=== PATIENT | male | born 1970 | race Caucasian/White ===

== ENCOUNTER 2020-08-22 14:06 | Emergency (ER) | payer OTHER ==
[~2020-08-22] VITALS: Ht 182.9 cm; Wt 108.9 kg
[2020-08-22] MEDS ORDERED: DILTIAZEM 24HR300 M1 PO (14:31)
[2020-08-22] MEDS ORDERED: OMEPRAZOLE20 MG PO (14:32)
[2020-08-22] MEDS ORDERED: K-TAB ER20 MEQ PO (14:32)
[2020-08-22] MEDS ORDERED: ZESTRIL40 MG PO (14:33)
[2020-08-22] MEDS ORDERED: FUROSEMIDE20 MG PO (14:34)
[2020-08-22] MEDS ORDERED: CATAPRES0.1 MG PO (14:34)
[2020-08-22] MEDS ORDERED: ATORVASTATIN CA80 MG PO (14:35)
[2020-08-22] MEDS ORDERED: CARVEDILOL25 MG PO (14:35)
[2020-08-22] MEDS ORDERED: PAROXETINE HCL20 MG PO (14:36)
[2020-08-22] MEDS ORDERED: ELIQUIS5 MG PO (14:36)
[2020-08-22] MEDS ORDERED: NITROGLYCERIN0.4 MG SL (15:54)
--- NOTE | 2020-08-22 23:54 | EKG ---
[facility] [address] [facility] [place], [place] [address] Signed Normal sinus rhythm Normal ECG Confirmed by WILLIAM HUNTER MD ([id number]) on 08/22/2020 11:54:20 PM Electronically Signed By: WILLIAM HUNTER MD 08/22/20 2354 PATIENT NAME: CAROLYN CARPENTER Electrocardiogram DATE OF : 68 PHYSICIAN: WILLIAM HUNTER MD REPORT #: [id number] REPORT IS CONFIDENTIAL AND NOT TO BE RELEASED WITHOUT AUTHORIZATION
== END 2020-08-22 16:03 | disposition home or self-care (01) ==
LOC: ED 14:06
DX: I20.9 Angina pectoris, unspecified (principal); I10 Essential (primary) hypertension; K21.9 Gastro-esophageal reflux disease without esophagitis; Z86.73 Personal history of transient ischemic attack (TIA), and cerebral infarction without residual deficits; F17.200 Nicotine dependence, unspecified, uncomplicated; Z88.0 Allergy status to penicillin; Z79.899 Other long term (current) drug therapy
CPT/HCPCS: 71045; 80053; 82550; 82553; 83735; 83874; 84484; 85025; 93005; 93010; 99285-25

== ENCOUNTER 2021-05-15 15:11 | Emergency (ER) | payer OTHER ==
[~2021-05-15] VITALS: Ht 182.9 cm; Wt 108.9 kg
[~2021-05-15 15:11] MED LIST: ATORVASTATIN CA80 MG PO; CARVEDILOL25 MG PO; CATAPRES0.1 MG PO; DILTIAZEM 24HR300 M1 PO; ELIQUIS5 MG PO; FUROSEMIDE20 MG PO; K-TAB ER20 MEQ PO; NITROGLYCERIN0.4 MG SL; OMEPRAZOLE20 MG PO; PAROXETINE HCL20 MG PO; ZESTRIL40 MG PO
--- NOTE | 2021-05-15 21:28 | EKG ---
[facility] [address] [facility] [place] [address] Signed Sinus bradycardia Otherwise normal ECG When compared with ECG of 22-AUG-2020 14:10, ST now depressed in Lateral leads Nonspecific T wave abnormality now evident in Inferior leads Nonspecific T wave abnormality now evident in Lateral leads Confirmed by VELVET ERAZO DO ([id number]) on 05/15/2021 9:28:34 PM Electronically Signed By: VELVET ERAZO DO 05/15/[id number] PATIENT NAME: CAROLYN CARPENTER Electrocardiogram DATE OF : 68 PHYSICIAN: VELVET ERAZO DO REPORT #: [id number] REPORT IS CONFIDENTIAL AND NOT TO BE RELEASED WITHOUT AUTHORIZATION
== END 2021-05-15 18:40 | disposition home or self-care (01) ==
LOC: ED 15:11
DX: R00.2 Palpitations (principal); R51.9 Headache, unspecified; I10 Essential (primary) hypertension; K21.9 Gastro-esophageal reflux disease without esophagitis; Z88.0 Allergy status to penicillin; Z79.899 Other long term (current) drug therapy; F17.200 Nicotine dependence, unspecified, uncomplicated; I48.91 Unspecified atrial fibrillation
CPT/HCPCS: 70450; 70496; 70498; 71045; 80053; 84484; 85025; 85610; 85730; 93005; 93010; 99285-25; Q9967